=== PATIENT | male | born 1945 | race African-American/Black ===

== ENCOUNTER 2018-04-06 12:48 | Observation (INO) ==
[2018-04-06 13:34] LABS: Basophils % 0.3 % (0.0-0.8); Eosinophils # 0.2 10*3/uL (0.0-0.87); Eosinophils % 3.5 % (0.00-10.9); Hematocrit 38.2 VOL% (42.0-52.0); Immature Granulocytes % 0.1 %; Immature Granulocytes Absolute 0.01 #; Lymphocytes # 3.3 10*3/uL (1.4-4.0); Lymphocytes % 48.8 % (21.2-54.2); Mean Corpuscular Hemoglobin 30 PG (27-34); Mean Corpuscular Volume 88.6 FL (87-102); Mean Platelet Volume 9.3 FL (9.6-12.0); Monocytes # 0.6 10*3/uL (0.11-0.8); Monocytes % 8.8 % (1.7-12.7); Neutrophils # 2.6 10*3/uL (1.4-7.4); Neutrophils % 38.5 % (38.7-73.9); Platelet Count 203 T/CUMM (130-400); Red Blood Count 4.31 MC/CUMM (3.8-5.5); Red Cell Distribution Width 14.2 % (9.3-17.3); White Blood Count 6.8 T/CUMM (4-12)
[2018-04-06 13:48] LABS: PT Patient Result 10.7 SECS; Partial Thromboplastin Time 27.4 SECS (0-40)
[2018-04-06 14:04] LABS: Eosinophils 3 % (0-10); Lymphocytes 49 % (20-55); Platelet Estimate Normal; Segmented Neutrophils 40 % (50-85); Total Cells Counted 100
[2018-04-06 14:06] LABS: Stomatocytes 1+
[2018-04-06 14:09] LABS: Spherocytes Slight
[2018-04-06 14:12] LABS: Alanine Aminotransferase 17 U/L (16-61); Albumin 3.8 G/DL (3.4-5.0); Alkaline Phosphatase 85 U/L (45-117); Aspartate Amino Transferase 19 U/L (0-37); Blood Urea Nitrogen 19 MG/DL (7-18); Glucose 121 MG/DL (74-106); Osmolality,Calculated 285.1 MOS/KG (273-304); Potassium 3.1 MMOL/L (3.5-5.1); Sodium 142 MMOL/L (136-145); Total Protein 8.4 G/DL (6.4-8.3)
[2018-04-06 15:05] LABS: Apearance,Urine CLEAR (Clear); Bilirubin,Urine Negative (Negative); Blood, Urine Negative (Negative); Glucose,Urine (UA) Negative (Negative); Ketones,Urine Negative (Negative); Nitrite,Urine Negative (Negative); Protein,Urine Negative; RBC,Urine 1 /HPF (0-4); Urine Color Yellow (Yellow); Urine Specific Gravity 1.014 (1.001-1.035); Urine Urobilinogen < 2.0 EU/DL (0.2-1.0); WBC,Urine 2 /HPF (0-6)
[2018-04-06 15:14] LABS: Barbiturates Screen,Urine Negative (Negative); Benzodiazepines Screen,Urine Negative (Negative); Cannabinoid Screen,Urine Negative (Negative); Opiate Screen,Urine Negative (Negative); Phencyclidine Screen,Urine Negative (Negative)
[2018-04-06] MEDS ORDERED: LABETALOL 20 MG/4 ML SYRINGE IV STA ×2 (16:03→16:20)
[2018-04-06] MEDS ORDERED: LABETALOL 200 MG/40 ML VIAL IV STA (16:14)
[2018-04-06] MEDS ORDERED: LABETALOL 100 MG/20 ML VIAL IV ONE (16:18)
[2018-04-06] MEDS ORDERED: ONDANSETRON 4 MG/2 ML VIAL IV PRN (16:49)
[2018-04-06] MEDS ORDERED: POTASSIUM CHLORIDE 20 MEQ TABLET PO PRN (16:49)
[2018-04-06] MEDS ORDERED: ACETAMINOPHEN 325 MG TABLET PO PRN (16:49)
[2018-04-06] MEDS ORDERED: LABETALOL 200 MG/40 ML VIAL IV PRN (16:49)
[2018-04-06] MEDS: SODIUM CHLORIDE 0.45% 1,000 ML IV SCH (17:10)
[2018-04-06] MEDS: POTASSIUM CHLORIDE 20 MEQ TABLET PO PRN ×3 (17:19→22:27)
[2018-04-06] MEDS ORDERED: ASPIRIN CHEW 81 MG TABLET PO ONE (17:39)
[2018-04-06] MEDS: ASPIRIN EC 81 MG TABLET PO SCH (17:39)
[2018-04-06] MEDS: amLODIPine 5 MG TABLET PO SCH (17:43)
[2018-04-06] MEDS: LOSARTAN 50 MG TABLET PO SCH (20:53)
[2018-04-06] MEDS: CYCLOBENZAPRINE 10 MG TABLET PO SCH (20:53)
[2018-04-06] MEDS: METOPROLOL TARTRATE 50 MG TABLET PO SCH (20:53)
[2018-04-06] MEDS ORDERED: ENOXAPARIN 40 MG/0.4 ML SYRINGE SUBCUT SCH (21:00)
[2018-04-07] MEDS: POTASSIUM CHLORIDE 20 MEQ TABLET PO PRN ×2 (00:29→02:41)
[2018-04-07] MEDS: SODIUM CHLORIDE 0.45% 1,000 ML IV SCH (04:41)
[2018-04-07 07:24] LABS: Basophils % 0.3 % (0.0-0.8); Eosinophils # 0.3 10*3/uL (0.0-0.87); Hemoglobin 12.3 GM/DL (14.0-18.0); Immature Granulocytes % 0.3 %; Immature Granulocytes Absolute 0.02 #; Lymphocytes # 2.7 10*3/uL (1.4-4.0); Lymphocytes % 42.4 % (21.2-54.2); Mean Corpuscular HGB Conc 33.2 GM/DL (32-36); Mean Corpuscular Hemoglobin 30 PG (27-34); Mean Corpuscular Volume 89.6 FL (87-102); Mean Platelet Volume 9.6 FL (9.6-12.0); Monocytes # 0.6 10*3/uL (0.11-0.8); Monocytes % 9.3 % (1.7-12.7); Neutrophils # 2.8 10*3/uL (1.4-7.4); Neutrophils % 43.7 % (38.7-73.9); Platelet Count 196 T/CUMM (130-400); Red Blood Count 4.13 MC/CUMM (3.8-5.5); Red Cell Distribution Width 14.3 % (9.3-17.3); White Blood Count 6.4 T/CUMM (4-12)
[2018-04-07 08:03] LABS: Calcium 8.9 MG/DL (8.5-10.1); Osmolality,Calculated 281.3 MOS/KG (273-304); Potassium 3.6 MMOL/L (3.5-5.1); Risk Ratio 4.5; Thyroid Stimulating Hormone 7.93 uIU/ml (0.358-3.74); VLDL CHOLESTEROL 82.6 MG/DL
[2018-04-07] MEDS: amLODIPine 5 MG TABLET PO SCH (08:49)
[2018-04-07] MEDS: ASPIRIN EC 81 MG TABLET PO SCH (08:49)
[2018-04-07] MEDS: METOPROLOL TARTRATE 50 MG TABLET PO SCH (08:49)
[2018-04-07] MEDS: LOSARTAN 50 MG TABLET PO SCH (08:50)
[2018-04-07] MEDS: CYCLOBENZAPRINE 10 MG TABLET PO SCH (08:50)
[2018-04-07] MEDS ORDERED: PANTOPRAZOLE 40 MG TABLET PO SCH (09:00)
[2018-04-07] MEDS ORDERED: ATORVASTATIN 10 MG TABLET PO SCH (09:00)
[2018-04-07] MEDS ORDERED: TERAZOSIN 5 MG CAPSULE PO SCH (09:00)
[2018-04-07] MEDS ORDERED: hydroCHLOROthiazide 25 MG TABLET PO SCH (09:00)
[2018-04-07] MEDS ORDERED: CLOPIDOGREL 75 MG TABLET PO SCH (09:00)
[2018-04-07] MEDS ORDERED: POTASSIUM CHLORIDE 20 MEQ TABLET PO SCH (09:00)
[2018-04-07] MEDS ORDERED: OMEGA 3 ACID ETHYL ESTERS 1 GM CAPSULE PO SCH (09:00)
[2018-04-07 12:27] VITALS: BP 163/99
[2018-04-07] MEDS ORDERED: amLODIPine 10 MG TABLET PO SCH (12:30)
== END 2018-04-07 15:45 | disposition home or self-care (01) ==
LOC: N.EDINP 12:48 → N.ED 12:48 → N.4E 18:38
PROVIDERS: ADMIT Internal Medicine; ATTEND Internal Medicine

== ENCOUNTER 2019-04-22 11:00 | Inpatient (IN) ==
[2019-04-22] MEDS ORDERED: ASPIRIN 325 MG TABLET PO STA (12:17)
[2019-04-22 12:37] LABS: Basophils % 0.3 % (0.0-0.8); Eosinophils # 0.3 10*3/uL (0.0-0.87); Eosinophils % 3.6 % (0.00-10.9); Hematocrit 26.6 VOL% (42.0-52.0); Hemoglobin 7.9 GM/DL (14.0-18.0); Immature Granulocytes % 0.3 %; Immature Granulocytes Absolute 0.02 #; Lymphocytes # 1.6 10*3/uL (1.4-4.0); Lymphocytes % 22.3 % (21.2-54.2); Mean Corpuscular HGB Conc 29.7 GM/DL (32-36); Mean Corpuscular Volume 80.9 FL (87-102); Mean Platelet Volume 9.1 FL (9.6-12.0); Monocytes % 11.2 % (1.7-12.7); Neutrophils % 62.3 % (38.7-73.9); Platelet Count 285 T/CUMM (130-400); Red Blood Count 3.29 MC/CUMM (3.8-5.5); Red Cell Distribution Width 15.8 % (9.3-17.3); White Blood Count 7.2 T/CUMM (4-12)
[2019-04-22 12:51] LABS: INR 1.1; PT Patient Result 11.5 SECS (9.6-12.2); Partial Thromboplastin Time 26.7 SECS (20.8-36.0)
[2019-04-22 12:52] LABS: Calcium 9.4 MG/DL (8.5-10.1); Osmolality,Calculated 286.3 MOS/KG (273-304)
[2019-04-22 13:44] LABS: Apearance,Urine CLEAR (Clear); Bacteria,Urine Occasional /HPF (Few); Bilirubin,Urine Negative (Negative); Blood, Urine Negative (Negative); Glucose,Urine (UA) Negative (Negative); Ketones,Urine Negative (Negative); Mucus,Urine Occasional /LPF (Occasional); Nitrite,Urine Negative (Negative); Protein,Urine Negative; RBC,Urine 2 /HPF (0-4); Squamous Epithelial Cell,Urine Occasional /HPF (0-10); Urine Color Yellow (Yellow); Urine Specific Gravity 1.016 (1.001-1.035); Urine Urobilinogen < 2.0 EU/DL (0.2-1.0); WBC,Urine 4 /HPF (0-6)
[2019-04-22 14:37] LABS: Barbiturates Screen,Urine Negative (Negative); Benzodiazepines Screen,Urine Negative (Negative); Cannabinoid Screen,Urine Negative (Negative); Opiate Screen,Urine Negative (Negative); Phencyclidine Screen,Urine Negative (Negative)
[2019-04-22] MEDS ORDERED: ONDANSETRON 4 MG/2 ML VIAL IV STA (15:31)
[2019-04-22] MEDS ORDERED: MORPHINE 4 MG/1 ML VIAL IV STA (15:31)
[2019-04-22] MEDS ORDERED: POTASSIUM CHLORIDE 20 MEQ TABLET PO PRN (17:41)
[2019-04-22] MEDS ORDERED: MAGNESIUM SULF RIDER 2 GM in PREMIX 1 EACH IV PRN (17:41)
[2019-04-22] MEDS ORDERED: MAGNESIUM SULF RIDER 4 GM in PREMIX 1 EACH IV PRN (17:41)
[2019-04-22] MEDS ORDERED: ONDANSETRON 4 MG/2 ML VIAL IV PRN (17:41)
[2019-04-22] MEDS ORDERED: cefTRIAXone 1,000 MG VIAL ONE (18:19)
[2019-04-22] MEDS ORDERED: DEXAMETHASONE 4 MG/1 ML VIAL ONE (18:19)
[2019-04-22 18:26] LABS: % Iron Saturation 7.1 % (18-50); Ferritin 64.1 ng/ml (26-388)
[2019-04-22 18:34] LABS: Folate 13.1 NG/ML (5.4-24.0)
[2019-04-22] MEDS: SODIUM CHLORIDE 0.9% 1,000 ML IV SCH (18:43)
[2019-04-22 18:47] LABS: Hematocrit 26.3 VOL% (42.0-52.0); Hemoglobin 7.8 GM/DL (14.0-18.0)
[2019-04-22] MEDS ORDERED: SODIUM CHLORIDE 0.9% 1,000 ML IV PRN (19:43)
[2019-04-22] MEDS: PANTOPRAZOLE 40 MG TABLET PO SCH (20:19)
[2019-04-23 02:45] LABS: Basophils % 0.4 % (0.0-0.8); Eosinophils # 0.4 10*3/uL (0.0-0.87); Hematocrit 31.4 VOL% (42.0-52.0); Hemoglobin 9.5 GM/DL (14.0-18.0); Immature Granulocytes % 0.3 %; Immature Granulocytes Absolute 0.02 #; Lymphocytes # 1.4 10*3/uL (1.4-4.0); Lymphocytes % 20.1 % (21.2-54.2); Mean Corpuscular HGB Conc 30.3 GM/DL (32-36); Mean Platelet Volume 9.1 FL (9.6-12.0); Monocytes % 12.6 % (1.7-12.7); Neutrophils % 61.6 % (38.7-73.9); Platelet Count 265 T/CUMM (130-400); Red Blood Count 3.83 MC/CUMM (3.8-5.5); Red Cell Distribution Width 15.8 % (9.3-17.3); White Blood Count 7.1 T/CUMM (4-12)
[2019-04-23 02:56] LABS: Bilirubin,Total 0.4 MG/DL (0.2-1.0); Calcium 9.1 MG/DL (8.5-10.1); Osmolality,Calculated 284.3 MOS/KG (273-304); Risk Ratio 3.87; Thyroid Stimulating Hormone 11.8 uIU/ml (0.358-3.74); Total Protein 8.3 G/DL (6.4-8.3); VLDL CHOLESTEROL 31.2 MG/DL
[2019-04-23] MEDS: OMEGA 3 ACID ETHYL ESTERS 1 GM CAPSULE PO SCH ×2 (05:06→09:14)
[2019-04-23] MEDS: TERAZOSIN 5 MG CAPSULE PO SCH ×2 (05:06→09:14)
[2019-04-23] MEDS: ATORVASTATIN 20 MG TABLET PO SCH ×2 (05:06→09:14)
[2019-04-23] MEDS: SODIUM CHLORIDE 0.9% 1,000 ML IV SCH ×2 (06:57→14:40)
[2019-04-23] MEDS: ACETAMINOPHEN 325 MG TABLET PO PRN (07:19)
[2019-04-23] MEDS: LEVOTHYROXINE 50 MCG TABLET PO SCH (09:14)
[2019-04-23] MEDS: PANTOPRAZOLE 40 MG TABLET PO SCH ×2 (09:15→20:19)
[2019-04-23 10:20] LABS: Hematocrit 30.3 VOL% (42.0-52.0); Hemoglobin 9.3 GM/DL (14.0-18.0)
[2019-04-23] MEDS ORDERED: IRON SUCROSE 200 MG in SODIUM CHLORIDE 0.9% 100 ML IV ONE (14:29)
[2019-04-23] MEDS: POTASSIUM CHLORIDE 20 MEQ TABLET PO SCH (14:38)
[2019-04-23] MEDS: POTASSIUM CHLORIDE 20 MEQ TABLET PO PRN (16:47)
[2019-04-23] MEDS: MORPHINE 4 MG/1 ML VIAL IV PRN ×2 (17:26→21:25)
[2019-04-24] MEDS: SODIUM CHLORIDE 0.9% 1,000 ML IV SCH ×4 (00:47→23:35)
[2019-04-24] MEDS: MORPHINE 4 MG/1 ML VIAL IV PRN ×4 (03:58→22:34)
[2019-04-24 05:36] LABS: Basophils % 0.2 % (0.0-0.8); Eosinophils # 0.4 10*3/uL (0.0-0.87); Eosinophils % 5.2 % (0.00-10.9); Hematocrit 30.5 VOL% (42.0-52.0); Hemoglobin 9.3 GM/DL (14.0-18.0); Immature Granulocytes % 0.2 %; Immature Granulocytes Absolute 0.02 #; Lymphocytes % 23.7 % (21.2-54.2); Mean Corpuscular HGB Conc 30.5 GM/DL (32-36); Mean Corpuscular Volume 81.6 FL (87-102); Mean Platelet Volume 9.3 FL (9.6-12.0); Monocytes % 9.8 % (1.7-12.7); Neutrophils % 60.9 % (38.7-73.9); Platelet Count 274 T/CUMM (130-400); Red Blood Count 3.74 MC/CUMM (3.8-5.5); Red Cell Distribution Width 15.5 % (9.3-17.3); White Blood Count 8.4 T/CUMM (4-12)
[2019-04-24] MEDS: OMEGA 3 ACID ETHYL ESTERS 1 GM CAPSULE PO SCH (05:40)
[2019-04-24] MEDS: TERAZOSIN 5 MG CAPSULE PO SCH (05:40)
[2019-04-24] MEDS: ATORVASTATIN 20 MG TABLET PO SCH (05:40)
[2019-04-24] MEDS: LEVOTHYROXINE 50 MCG TABLET PO SCH (05:40)
[2019-04-24 06:12] LABS: Albumin 2.9 G/DL (3.4-5.0); Bilirubin,Total 0.4 MG/DL (0.2-1.0); Calcium 8.7 MG/DL (8.5-10.1); Osmolality,Calculated 278.4 MOS/KG (273-304)
[2019-04-24] MEDS: POTASSIUM CHLORIDE 20 MEQ TABLET PO SCH (08:30)
[2019-04-24] MEDS: PANTOPRAZOLE 40 MG TABLET PO SCH ×2 (08:30→20:22)
[2019-04-24 10:41] LABS: Cancer Antigen 19-9 3023.4 U/ML (0-37); Carcinoembryonic Antigen 176.5 NG/ML (0.0-5.0)
[2019-04-24] MEDS: ACETAMINOPHEN 325 MG TABLET PO PRN (20:22)
[2019-04-25] MEDS: MORPHINE 4 MG/1 ML VIAL IV PRN ×3 (03:32→14:21)
[2019-04-25] MEDS: ATORVASTATIN 20 MG TABLET PO SCH ×2 (05:43→09:25)
[2019-04-25] MEDS: amLODIPine 10 MG TABLET PO SCH ×2 (05:43→09:24)
[2019-04-25] MEDS: OMEGA 3 ACID ETHYL ESTERS 1 GM CAPSULE PO SCH ×2 (05:43→09:24)
[2019-04-25] MEDS: LEVOTHYROXINE 50 MCG TABLET PO SCH ×2 (05:43→09:23)
[2019-04-25] MEDS: TERAZOSIN 5 MG CAPSULE PO SCH ×2 (05:43→09:25)
[2019-04-25 06:22] LABS: Bilirubin,Direct 0.21 MG/DL (0.0-0.20); Bilirubin,Indirect 0.5 MG/DL (0.0-1.0); Bilirubin,Total 0.7 MG/DL (0.2-1.0); Free T4 (Free Thyroxine) 1.16 NG/DL (0.76-1.46)
[2019-04-25 07:01] LABS: Hepatitis B Core IgM Quant 0.17 Index; Hepatitis B Surface Ag Quant < 0.10 Index; Hepatitis B Surface Ag Result Negative (Negative); Hepatitis C Virus Ab Quant > 11.00 Index; Hepatitis C Virus Ab Result Positive (Negative)
[2019-04-25] MEDS: PANTOPRAZOLE 40 MG TABLET PO SCH ×2 (09:24→20:54)
[2019-04-25] MEDS: POTASSIUM CHLORIDE 20 MEQ TABLET PO SCH (09:24)
[2019-04-25] MEDS ORDERED: PROPOFOL 200 MG/20 ML VIAL IV ONE (10:00)
[2019-04-25] MEDS ORDERED: LIDOCAINE 2% 5 ML VIAL ONE (10:00)
[2019-04-25] MEDS: SODIUM CHLORIDE 0.9% 1,000 ML IV SCH ×2 (10:24→18:34)
[2019-04-25] MEDS ORDERED: POLYETHYLENE GLYCOL POWDER 255 GM BOTTLE PO ONE (18:00)
[2019-04-25] MEDS ORDERED: MAGNESIUM CITRATE 300 ML BOTTLE PO ONE (21:00)
[2019-04-26] MEDS: MORPHINE 4 MG/1 ML VIAL IV PRN ×4 (00:26→20:15)
[2019-04-26] MEDS: SODIUM CHLORIDE 0.9% 1,000 ML IV SCH ×2 (02:26→20:16)
[2019-04-26] MEDS: ATORVASTATIN 20 MG TABLET PO SCH ×2 (06:23→18:16)
[2019-04-26] MEDS: TERAZOSIN 5 MG CAPSULE PO SCH ×2 (06:23→18:17)
[2019-04-26] MEDS: OMEGA 3 ACID ETHYL ESTERS 1 GM CAPSULE PO SCH (06:23)
[2019-04-26] MEDS: LEVOTHYROXINE 50 MCG TABLET PO SCH (06:24)
[2019-04-26] MEDS: amLODIPine 10 MG TABLET PO SCH ×2 (06:24→18:17)
[2019-04-26 07:45] LABS: Basophils % 0.2 % (0.0-0.8); Eosinophils # 0.4 10*3/uL (0.0-0.87); Eosinophils % 4.2 % (0.00-10.9); Hematocrit 31.3 VOL% (42.0-52.0); Hemoglobin 9.4 GM/DL (14.0-18.0); Immature Granulocytes % 0.1 %; Immature Granulocytes Absolute 0.01 #; Lymphocytes # 1.5 10*3/uL (1.4-4.0); Lymphocytes % 17.5 % (21.2-54.2); Mean Corpuscular Volume 81.7 FL (87-102); Mean Platelet Volume 8.7 FL (9.6-12.0); Monocytes % 10.8 % (1.7-12.7); Neutrophils % 67.2 % (38.7-73.9); Platelet Count 239 T/CUMM (130-400); Red Blood Count 3.83 MC/CUMM (3.8-5.5); Red Cell Distribution Width 15.6 % (9.3-17.3); White Blood Count 8.3 T/CUMM (4-12)
[2019-04-26 08:09] LABS: Bilirubin,Total 0.5 MG/DL (0.2-1.0); Calcium 8.4 MG/DL (8.5-10.1); Osmolality,Calculated 275.5 MOS/KG (273-304); Total Protein 8.2 G/DL (6.4-8.3)
[2019-04-26] MEDS ORDERED: LIDOCAINE 2% 5 ML VIAL ONE (09:00)
[2019-04-26] MEDS ORDERED: PROPOFOL 200 MG/20 ML VIAL IV ONE (09:00)
[2019-04-26] MEDS ORDERED: MAGNESIUM SULF RIDER 4 GM in PREMIX 1 EACH IV PRN (09:14)
[2019-04-26] MEDS ORDERED: MAGNESIUM SULF RIDER 2 GM in PREMIX 1 EACH IV PRN (09:14)
[2019-04-26] MEDS ORDERED: DIAZEPAM 5 MG TABLET PO ONE (13:59)
[2019-04-26] MEDS: POTASSIUM CHLORIDE 20 MEQ TABLET PO SCH (16:33)
[2019-04-26] MEDS: PANTOPRAZOLE 40 MG TABLET PO SCH ×2 (16:33→20:15)
[2019-04-26] MEDS ORDERED: PHENOL 1.4% THROAT SPRAY 177 ML BOTTLE PO PRN (18:26)
[2019-04-27 04:46] LABS: Basophils % 0.5 % (0.0-0.8); Eosinophils # 0.4 10*3/uL (0.0-0.87); Eosinophils % 4.9 % (0.00-10.9); Hematocrit 31.1 VOL% (42.0-52.0); Hemoglobin 9.4 GM/DL (14.0-18.0); Immature Granulocytes % 0.5 %; Immature Granulocytes Absolute 0.04 #; Lymphocytes # 1.6 10*3/uL (1.4-4.0); Lymphocytes % 19.1 % (21.2-54.2); Mean Corpuscular HGB Conc 30.2 GM/DL (32-36); Mean Corpuscular Volume 82.1 FL (87-102); Mean Platelet Volume 8.8 FL (9.6-12.0); Monocytes % 10.4 % (1.7-12.7); Neutrophils % 64.6 % (38.7-73.9); Platelet Count 257 T/CUMM (130-400); Red Blood Count 3.79 MC/CUMM (3.8-5.5); Red Cell Distribution Width 15.6 % (9.3-17.3); White Blood Count 8.4 T/CUMM (4-12)
[2019-04-27] MEDS: amLODIPine 10 MG TABLET PO SCH (04:49)
[2019-04-27] MEDS: OMEGA 3 ACID ETHYL ESTERS 1 GM CAPSULE PO SCH (04:49)
[2019-04-27] MEDS: TERAZOSIN 5 MG CAPSULE PO SCH (04:49)
[2019-04-27] MEDS: SODIUM CHLORIDE 0.9% 1,000 ML IV SCH (04:49)
[2019-04-27] MEDS: ATORVASTATIN 20 MG TABLET PO SCH (04:49)
[2019-04-27 05:07] LABS: Albumin 2.8 G/DL (3.4-5.0); Bilirubin,Total 0.5 MG/DL (0.2-1.0); Calcium 8.3 MG/DL (8.5-10.1); Osmolality,Calculated 278.3 MOS/KG (273-304); Total Protein 7.8 G/DL (6.4-8.3)
[2019-04-27] MEDS: LEVOTHYROXINE 50 MCG TABLET PO SCH (06:29)
[2019-04-27] MEDS: POTASSIUM CHLORIDE 20 MEQ TABLET PO PRN ×2 (06:29→11:59)
[2019-04-27] MEDS: MORPHINE 4 MG/1 ML VIAL IV PRN ×2 (07:54→12:07)
[2019-04-27] MEDS: PANTOPRAZOLE 40 MG TABLET PO SCH (08:00)
[2019-04-27] MEDS: POTASSIUM CHLORIDE 20 MEQ TABLET PO SCH (08:00)
[2019-04-27] MEDS ORDERED: hydrALAZINE 25 MG TABLET PO SCH (11:00)
[2019-04-27 12:14] VITALS: BP 163/98
[2019-04-27] MEDS ORDERED: ALBUTEROL 2.5 MG/3 ML NEB RESP TX PRN (12:56)
== END 2019-04-27 13:03 | disposition home health service (06) | DRG 435 ==
LOC: N.ED 11:00 → N.EDINP 17:41 → SUATTDRO 17:41 → N.EDINP 18:59 → N.4E 19:04
PROVIDERS: ADMIT Hospitalist; ATTEND Hospitalist